=== PATIENT | male | born 1995 | race African-American/Black ===

== ENCOUNTER 2018-11-23 19:51 | Emergency (ER) | payer OTHER, MEDICAID ==
[~2018-11-23] VITALS: Ht 167.6 cm; Wt 59.0 kg
[2018-11-23] MEDS ORDERED: SODIUM CHLORIDE 0.9% 1,000 ML IV ONE (20:57)
[2018-11-23 21:27] LABS: BASOPHILS % 0.7 % (0.0-2.0); EOSINOPHILS % 3.5 % (0.0-5.0); HEMATOCRIT. 40.5 % (42.0-52.0); HEMOGLOBIN. 13.7 g/dL (14.0-18.0); LYMPHOCYTES % 7.5 % (20.0-50.0); MEAN CORPUSCULAR HEMOGLOBIN 29.5 pg (28.0-32.0); MEAN CORPUSCULAR VOLUME 87.2 fL (80.0-94.0); MEAN PLATELET VOLUME 8.4 fl (7.4-10.4); MONOCYTES % 4.1 % (2.0-8.0); NEUTROPHILS % 84.2 % (40.0-76.0); PLATELET 244 x1000/uL (130-400); RED BLOOD CELL COUNT 4.64 mill/uL (4.7-6.1); RED CELL DISTRIBUTION WIDTH 12.8 % (11.6-14.6)
[2018-11-23 21:35] LABS: CHLORIDE 105 mEq/L (98-107); PARTIAL THROMBOPLASTIN TIME 23.2 sec (23.4-31.0); PROTHROMBIN TIME 10.3 sec (9.6-11.0)
[2018-11-23 21:39] LABS: ETHANOL BLOOD < 10 mg/dL
[2018-11-24 00:45] LABS: CLARITY URINE CLEAR (CLEAR); COLOR URINE YELLOW (YELLOW); KETONES URINE NEGATIVE (NEGATIVE); LEUKOCYTE ESTERASE URINE NEGATIVE (NEGATIVE); NITRITE URINE NEGATIVE (NEGATIVE); OCCULT BLOOD URINE TRACE (NEGATIVE); PH URINE 6.5 (4.5-8.0); PROTEIN URINE NEGATIVE (NEGATIVE); SPECIFIC GRAVITY URINE 1.012 (1.005-1.030); UROBILINOGEN URINE 0.2 E.U./dL (0.2-1.0)
[2018-11-24 00:59] LABS: *BARBITURATES SCREEN URINE NEGATIVE (NEGATIVE)
[2018-11-24 01:00] LABS: *BENZODIAZEPINES SCREEN URINE NEGATIVE (NEGATIVE); *COCAINE SCREEN URINE NEGATIVE (NEGATIVE); CANNABINOID URINE SCREEN PRESUMTIVE POSITIVE (NEGATIVE); METHADONE URINE SCREEN NEGATIVE (NEGATIVE); OPIATES URINE SCREEN NEGATIVE (NEGATIVE); PHENCYCLIDINE URINE SCREEN NEGATIVE (NEGATIVE)
[2018-11-24 01:01] LABS: *AMPHETAMINES SCREEN URINE NEGATIVE (NEGATIVE)
[2018-11-24 15:34] VITALS: BP 115/71
== END 2018-11-24 15:40 | disposition home or self-care (01) ==
LOC: ER 19:51
DX: R41.82 Altered mental status, unspecified (principal); E05.90 Thyrotoxicosis, unspecified without thyrotoxic crisis or storm
CPT/HCPCS: 36415; 70450; 71045; 80053; 80305; 80307; 80320; 80329; 81003; 82140; 84443; 84484; 85025; 85610; 85730; 93005; 96360; 99284; J7030; Z7610; G0480